=== PATIENT | male | born 1985 | race Caucasian/White ===

== ENCOUNTER 2017-07-22 08:14 | Emergency (ER) | payer OTHER, SELFPAY ==
[2017-07-22 08:15] VITALS: BP 116/73; PULSE 86; RESP 14; TEMP 37; O2SAT 98; BMI 20.2
--- NOTE | 2017-07-22 08:31 | ED.DCSUM_ITS ---
- ER Visit Summary Date of Service: 07/22/17 Chief Complaint: Abscess History of Present Illness: The patient is a 31 M who was seen in May for swelling around his tailbone. He was treated with antibiotics for presumed pilonidal cyst. He states his symptoms improved but returned 3 days ago. The swelling and pain are worse than they were previously. Patient has not had fever chills. He does report having similar symptoms years ago when he was in high school. Physical Examination: Vital signs are unremarkable. Patient is afebrile. Head neck examination is normal. Heart is regular rate and rhythm. Lung sounds are clear. Back examination reveals pilonidal cyst measuring 1 x 3 cm with fluctuance. There is no surrounding cellulitis. Test Results: [] Emergency Department Course and Treatment: 2 cc 1% lidocaine were infused to the affected area. An incision with a #11 blade was made. There is return of pus and blood. Wound is explored and cleansed. Dressing is applied. Patient will be given Bactrim and Keflex, first doses here and referred to surgery for definitive treatment. Treatment Plan: [] Disposition: Discharge Impression: Pilonidal cyst status post I&D This note was generated with [employer] dictation software. It may contain incorrect words, spelling, and punctuation that were not noted in review of the chart prior to signing ED Disposition - Plan for ED Patient: Chief Complaint: Abscess Referrals: Care Physician,No Primary [Primary Care Provider] -
[2017-07-22] MEDS: Cephalexin 250 MG Capsule 500 MG PO (08:53)
[2017-07-22] MEDS: Smz/Tmp Ds Tablet 1 TABLET PO (08:53)
--- NOTE | 2017-07-22 08:54 | ED.DEP ---
ED Disposition - Plan for ED Patient: Disposition: Home or Assisted Living Chief Complaint: Abscess Instructions: ED Cyst Pilonidal Infected IandD Prescriptions: Cephalexin [Keflex] 500 mg PO Q6 #40 capsule Smz/Tmp Ds [Bactrim Ds] 1 tablet PO BID #20 tablet Referrals: Andrae Nolan MD [STAFF PHYSICIAN] - As Needed
[2017-07-22 09:00] VITALS: BP 124/77; PULSE 68; RESP 15; O2SAT 98
== END 2017-07-22 09:01 | disposition home or self-care (01) ==
PROVIDERS: Emergency Provider Emergency Medicine
DX: L05.91 Pilonidal cyst without abscess (principal); Z72.0 Tobacco use; F12.20 Cannabis dependence, uncomplicated; Z86.718 Personal history of other venous thrombosis and embolism
CPT/HCPCS: 10080; 99283

== ENCOUNTER 2018-01-22 08:32 | Emergency (ER) | payer OTHER, SELFPAY ==
[2018-01-22 08:33] VITALS: BP 143/78; PULSE 74; RESP 18; TEMP 36.6; O2SAT 99
--- NOTE | 2018-01-22 08:52 | ED.VISSUMM ---
- ER Visit Summary Date of Service: 01/22/18 Chief Complaint: Abdominal pain History of Present Illness: The patient is a 32 M who started with abdominal pain about 1 hour ago. Sharp on the left side of his abdomen. It is continuous in nature. He denies nausea, vomiting, diarrhea. No urinary symptoms. 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 He took blood thinners but is currently off. There was no diagnosable cause as to why he had this thrombosis. He states his pain feels similar to that episode. Denies any fevers. Physical Examination: Vital signs reviewed. HEENT exam unremarkable. Heart is regular rate and rhythm without murmurs. Lungs are clear to auscultation. Abdomen is soft with tenderness on the left side of his abdomen. There is no guarding or rebound tenderness. Extremities reveal no edema. Skin exam normal. Neurologic exam normal. Test Results: Labs are normal. Contrasted IV abdominal CT reveals a questionable thrombus in the IVC. It could be artifact as well. I then obtained an ultrasound and it shows no thrombus. Emergency Department Course and Treatment: Patient feels better after Toradol. He will be discharged with naproxen. He will follow-up with his PCP Treatment Plan: [] Disposition: Discharge Impression: Abdominal pain This note was generated with [employer] dictation software. It may contain incorrect words, spelling, and punctuation that were not noted in review of the chart prior to signing ED Disposition - Plan for ED Patient: Chief Complaint: Abd Pain Referrals: Care Physician,No Primary [Primary Care Provider] -
[2018-01-22] MEDS: Ketorolac 30 MG/ML Syringe IV (09:25)
[2018-01-22 09:43] LABS: Absolute Lymphocyte Count 1.64 X10^3/ul (0.83-4.51); Absolute Neutrophil Count 3.3 X10^3/uL (2.0-7.7); Basophil# 0.02 X10^3/uL; Basophil% 0.3 % (0-1); Eosinophil# 0.46 X10^3/uL; Eosinophils% 7.6 % (0-5); Hematocrit 45.9 % (40-54); Hemoglobin 15.2 g/dl (13.0-16.5); Lymphocyte # 1.64 X10^3/ul (4.0); Mean Corp Hgb Conc 33.1 g/gl (32-36); Mean Corpuscular Hgb 28.5 pg (27.0-32.0); Mean Corpuscular Volume 86.1 fL (80-94); Mean Platelet Vol. 8.9 fl (6.2-12.0); Monocyte# 0.69 X10^3/uL; Monocyte% 11.3 % (0-10); Neutrophil # 3.27 X10^3/uL (2.7-7.7); Neutrophil % 53.8 % (47-70); Platelet Count 143 K/mm3 (150-450); RBC Distribution Width SD 40.8 fl (35.1-43.9); Red Blood Count 5.33 M/mm3 (4.6-6.2); White Blood Count 6.1 K/mm3 (4.4-11.0)
[2018-01-22 09:44] LABS: POSITIVE COUNT NO; POSITIVE DIFFERENTIAL NO; POSITIVE MORPHOLOGY NO
[2018-01-22 10:01] LABS: ALB/GLOB Ratio 1.1 RATIO (0.9-2.4); AST(SGOT) 13 U/L (15-37); Alanine Aminotransfer ALT/SGPT 13 U/L (16-61); Albumin, Serum 3.9 g/dL (3.2-5.0); Alkaline Phosphatase 47 U/L (45-117); Anion Gap 7 (5-15); BUN 14 mg/dL (7-18); BUN/Creat Ratio 15.2 RATIO (10-20); Calcium,Total 8.6 mg/dL (8.5-10.1); Chloride 105 mmol/L (98-107); Creatinine, Serum 0.92 mg/dL (0.70-1.30); EST Glomerular Filtration Rate 103 mL/min (>60); Est Glom Filt Rate - Afr Amer 124 mL/min (>60); Estimated Creatinine Clearance 96.48 ml/min; Globulin 3.4 g/dL (2.2-4.2); Glucose 105 mg/dL (74-106); Lipase 137 U/L (73-393); Potassium 3.7 mmol/L (3.5-5.1); Protein, Total 7.3 g/dL (6.4-8.2); Sodium Level 139 mmol/L (136-145)
[2018-01-22 11:35] VITALS: BP 99/55; PULSE 61; RESP 16; O2SAT 98
--- NOTE | 2018-01-22 11:53 | ED.DEP ---
ED Disposition - Plan for ED Patient: Disposition: Home or Assisted Living Chief Complaint: Abd Pain Instructions: ED Abdominal Pain Unkn Cause Prescriptions: Naproxen [Naprosyn] 500 mg PO BID PRN #20 tab Referrals: Care Physician,No Primary [Primary Care Provider] -
== END 2018-01-22 12:07 | disposition home or self-care (01) ==
PROVIDERS: Emergency Provider Emergency Medicine
DX: R10.9 Unspecified abdominal pain (principal); Z86.718 Personal history of other venous thrombosis and embolism; Z72.0 Tobacco use
CPT/HCPCS: 74177; 80053; 83690; 85025; 93978; 96374; 99283; Q9967; A4216

== ENCOUNTER 2020-08-30 07:54 | Outpatient (RCR) | payer OTHER, SELFPAY | END 2020-10-23 23:59 | LOC: IMMUN 07:54 | PROVIDERS: Referring Provider Family Medicine; Visit Provider Family Medicine | DX: Z23 Encounter for immunization (principal) | CPT/HCPCS: 0001A; 0002A; 91300 ==